=== PATIENT | female | born 1960 | race Caucasian/White ===

== ENCOUNTER 2020-12-14 14:53 | Emergency (ER) | payer OTHER, SELFPAY ==
--- NOTE | 2020-12-14 15:03 | DI.RAD.S_ITS ---
PROCEDURE: XR WRIST RT MIN 3V INDICATIONS: fall TECHNIQUE: 4 views of the wrist were acquired. COMPARISON: None. FINDINGS: Bones: No fractures or dislocations. No suspicious bony lesions. Scaphoid view: Intact Soft tissues: No suspicious soft tissue calcifications. IMPRESSION: No acute abnormality. Dictated by: Los Guzman M.D. on 12/14/2020 at 15:19 Approved by: Los Guzman M.D. on 12/14/2020 at 15:20
--- NOTE | 2020-12-14 15:04 | DI.RAD.S_ITS ---
PROCEDURE: XR RIBS RT MIN 3V W CXR 1V INDICATIONS: Fall TECHNIQUE: 2 views of the right ribs were acquired, along with a single view chest. COMPARISON: None. FINDINGS: Surgical changes and devices: None. Bones and chest wall: No fractures or dislocations. No suspicious bony lesions. Overlying soft tissues appear unremarkable. Lungs and pleura: No pleural effusions or pneumothorax. Lungs appear clear. Mediastinum: Mediastinal contours appear normal. Heart size is normal. IMPRESSION: No acute cardiopulmonary abnormality. Dictated by: Los Guzman M.D. on 12/14/2020 at 15:20 Approved by: Los Guzman M.D. on 12/14/2020 at 15:23
[2020-12-14 15:05] VITALS: BP 144/81; PULSE 77; RESP 18; TEMP 36.4; O2SAT 99
--- NOTE | 2020-12-14 15:51 | ED.UPPEXIN ---
HPI - Extremity Injury (Upper) <ABHIJIT Ying - Last Filed: 12/14/20 20:14> General Chief Complaint: Extremity Injury, Upper Stated Complaint: Fell and hurt/broke Right hand-palm Time Seen by Provider: 12/14/20 15:09 Source: patient Mode of arrival: Ambulatory History of Present Illness HPI narrative: 60-year-old female presents to the emergency department after slipping and falling down on her right hand this morning after cleaning out the gutters. She states she had a ground level fall and slipped because it was wet out and now has right hand palm pain On the ulnar side.. She is right-handed, denies any decreased range of motion or hearing a pop when she fell. She denies any shoulder pain or elbow pain, And denies hitting her head. She reports she is going on a trip next week and wanted to make sure there is not a fracture before going on vacation. She reports the pain is mild and that she can take medication [id number] for this. Review of Systems <ABHIJIT Ying - Last Filed: 12/14/20 20:14> Review of Systems Narrative: General: denies fever, chills Head/Neck: denies headache, neck pain Eyes: denies visual changes, eye pain Cardio: denies chest pain, palpitations Respiratory: denies shortness of breath, cough GI: denies abdominal pain, nausea, vomiting, or diarrhea : denies dysuria, hematuria MSK: denies joint pain, muscle weakness, right hand pain on the palmar surface, denies wrist, elbow, or shoulder pain on the right arm. Skin: denies rash, itching Neuro: denies numbness, tingling Exam <ABHIJIT Ying - Last Filed: 12/14/20 20:14> Narrative Exam Narrative: Independently reviewed vitals signs and nursing notes. General: Awake, alert, nontoxic, no cardiorespiratory distress Head/Neck: Atraumatic, neck full range of motion Eyes: EOMI, conjunctiva normal Nose: nares patent, no rhinorrhea Mouth/Throat: moist mucus membranes, posterior pharynx normal, no oral lesions Cardio: Regular rate and rhythm, no peripheral edema Respiratory: respirations unlabored without wheezing, stridor, or rales. No retractions. GI: Abdomen soft, nontender MSK: Moves all extremities, neurovascularly intact, right hand with no obvious contusion, deformity, altered range of motion. Patient has no snuffbox tenderness, radial and ulnar pulses are palpable, no skin changes, no pain over 5th metacarpal, she states her pain is just proximal and lateral to her proximal 5th metacarpal. she has been icing it So it is cool to touch. Skin: Normal capillary refill, no rash Neuro: Normal speech and cognition, normal gait Initial Vital Signs Initial Vital Signs: Vital Signs Temperature 97.5 F L 12/14/20 15:05 Pulse Rate 77 12/14/20 15:05 Respiratory Rate 18 12/14/20 15:05 Blood Pressure 144/81 H 12/14/20 15:05 Pulse Oximetry 99 12/14/20 15:05 <Trinity Sanders DO - Last Filed: 12/15/20 19:18> Initial Vital Signs Initial Vital Signs: Vital Signs Temperature 97.5 F L 12/14/20 15:05 Pulse Rate 77 12/14/20 15:05 Respiratory Rate 18 12/14/20 15:05 Blood Pressure 144/81 H 12/14/20 15:05 Pulse Oximetry 99 12/14/20 15:05 Course <ABHIJIT Ying - Last Filed: 12/14/20 20:14> Orders Ordered: ED Orders 12/14/20 15:03 XR wrist RT min 3V Stat 12/14/20 15:04 XR ribs RT min 3V w CXR1V Stat Vital Signs Vital signs: Vital Signs - 8 hr 12/14/20 15:05 Temperature 97.5 F L Pulse Rate 77 Respiratory Rate 18 Blood Pressure 144/81 H Pulse Oximetry 99 <Trinity Sanders DO - Last Filed: 12/15/20 19:18> Orders Ordered: ED Orders 12/14/20 15:03 XR wrist RT min 3V Stat 12/14/20 15:04 XR ribs RT min 3V w CXR1V Stat Vital Signs Vital signs: Vital Signs - 8 hr 12/14/20 15:05 Temperature 97.5 F L Pulse Rate 77 Respiratory Rate 18 Blood Pressure 144/81 H Pulse Oximetry 99 MDM - Extremity Injury (Upper) <ABHIJIT Ying - Last Filed: 12/14/20 20:14> Imaging Data Extremity x-ray #1: Radiologist's Impression: PROCEDURE:? XR RIBS RT MIN 3V W CXR 1V ? INDICATIONS:? Fall ? TECHNIQUE:? 2 views of the right ribs were acquired, along with a single view chest.? ? COMPARISON:? None. ? FINDINGS:? ? Surgical changes and devices:? None.? ? Bones and chest wall:? No fractures or dislocations.? No suspicious bony lesions.? Overlying soft tissues appear unremarkable.? ? Lungs and pleura:? No pleural effusions or pneumothorax.? Lungs appear clear.? ? Mediastinum:? Mediastinal contours appear normal.? Heart size is normal.? ? IMPRESSION:? No acute cardiopulmonary abnormality. ? ? Dictated by: Los Guzman M.D. on 12/14/2020 at 15:20 ? ? Approved by: Los Guzman M.D. on 12/14/2020 at 15:23 ? Extremity x-ray #2: Radiologist's Impression: PROCEDURE:? XR WRIST RT MIN 3V ? INDICATIONS: fall ? TECHNIQUE:? 4 views of the wrist were acquired.? ? COMPARISON:? None. ? FINDINGS:? ? Bones:? No fractures or dislocations.? No suspicious bony lesions.? ? Scaphoid view:? Intact ? Soft tissues:? No suspicious soft tissue calcifications.? ? IMPRESSION:? No acute abnormality. ? ? Dictated by: Los Guzman M.D. on 12/14/2020 at 15:19 ? ? Approved by: Los Guzman M.D. on 12/14/2020 at 15:20 ? [facility] Narrative Medical decision making narrative: 6-year-old female presents to the emergency department today for right hand and rib pain after slipping on the wet ground and falling from ground level catching herself with her right hand. She is right-handed, x-ray of her right ribs was negative for any acute abnormality, as well as her right wrist x-ray which was acute abnormality. With an intact scaphoid view. She has no point tenderness over scaphoid, she has full range of motion of her hand, this is most likely a contusion the palmar surface of her hand. She has been icing it, and states she wanted a little bit more protection so she was fitted into a right wrist splint and satisfied with that immobilization. I recommended to her to have another x-ray just prior to her vacation it is still just as painful. Patient is appropriate and amenable to discharge home. Vital signs are stable on repeat examination is unremarkable. Patient has been informed of results. Patient has been given strict return to ER precautions for any new or worsening symptoms. Patient understands to follow up closely with outpatient providers as instructed. Patient understands plan and agrees to discharge home. All questions and concerns answered at this time. Discharge Plan Departure Patient Disposition: Home Clinical Impression: Contusion Qualifiers: Encounter type: initial encounter Contusion area: hand Laterality: right Qualified Code(s): S60.221A - Contusion of right hand, initial encounter Instructions: DI for Wrist Sprain Activity Restrictions/Additional Instructions: *You have been diagnosed with A contusion of your right hand palmar surface. This will most likely get better in the next week with ice, elevation, limited use, less chores, and ibuprofen or Aleve with Tylenol. There are no fractures or dislocations, this is great news. If you develop any worsening symptoms, shoulder pain, elbow pain, or something does not feel right, please return to the emergency department for re-evaluation. No medications needed at this time for prescription. I am reassured by your range of motion and the x-ray that this should get better in the next few have a great trip to [place], say hi to the fish and the dolphins for me. Please wear the splint as a reminder to take it easy on your hand, you may also have a wrist sprain which might be painful for a little while, you can take the splint off as you need to swim or shower. *What to do: *Please continue to take your regular medications as directed. [ ] New medication prescriptions sent to your pharmacy: [ ] [ ] New medication written as a paper prescription [x ] No new medications given *Please follow up with your primary care provider in 2-3 days, call for an appointment. Let them know you were seen in the Emergency Department and that we ask that you be seen in follow up. We will electronically transmit a record of today's note if your PCP is in our system *If you do not have a primary care provider please contact the [facility] Resource line at [phone]. They will ask some questions about your medical history and help get you set up with a doctor in the community. *Return to Emergency Department if you should have any new, worsening or concerning symptoms, such as [fever greater than 101F, chills, worsening pain, persistent vomiting or other bothersome symptoms] <Trinity Sanders, - Last Filed: 12/15/20 19:18> Cosign ED Attending Cosallegraature Attestation: I was immediately available in the department for consultation. Documentation has been reviewed.
== END 2020-12-14 16:19 | disposition home or self-care (01) ==
PROVIDERS: Emergency Provider Nurse Practitioner Critical Care Medicine
DX: S60.221A Contusion of right hand, initial encounter (principal); W19.XXXA Unspecified fall, initial encounter
CPT/HCPCS: 71101; 73110; 99282; 99283